=== PATIENT | female | born 1985 | race Caucasian/White ===

== ENCOUNTER 2018-07-08 16:05 | Emergency (ER) | payer OTHER, SELFPAY ==
[2018-07-08 16:12] VITALS: BP 111/68; PULSE 81; RESP 20; TEMP 36.7; O2SAT 98; BMI 29.5
--- NOTE | 2018-07-08 19:49 | ED_ITS ---
HPI - Female Genitourinary General Chief complaint: Urogenital-Female Stated complaint: SHARP UTERINE PAINS Time Seen by Provider: 07/08/18 19:39 Source: patient Mode of arrival: ambulatory Limitations: no limitations History of Present Illness HPI Narrative: Patient is a 32-year-old female who presents with uterine pain. She says she felt early this morning she has an IUD in place it has been there for about 4-5 months. No vaginal bleeding its mid suprapubic pain. She took some ibuprofen it did seem to help. She has been a little nauseated but no vomiting or fevers. She does have a history of frequent UTIs and is familiar with the symptoms she denies having any of those symptoms. She also denies any vaginal discharge. MD Complaint: pelvic pain Onset (ago): day(s) (1) Severity: mild Related Data Allergies Allergy/AdvReac Type Severity Reaction Status Date / Time ondansetron AdvReac Severe PT HAS Unverified 01/27/18 12:33 PROLONGED QT Review of Systems Review of Systems All systems reviewed & are unremarkable except as noted in HPI and below Constitutional Denies chills, Denies fever(s), Denies lethargy and Denies weakness Cardiovascular Denies chest pain, Denies irregular heart rhythm, Denies lightheadedness, Denies palpitations, Denies dyspnea, Denies dyspnea on exertion and Denies orthopnea Respiratory Denies cough, Denies dyspnea, Denies dyspnea on exertion and Denies wheezing Gastrointestinal Gastrointestinal: Reports nausea Genitourinary Reports system reviewed and no additional complaints, except as docu Musculoskeletal Denies back pain, Denies muscle weakness, Denies numbness and Denies tingling Neurologic Denies numbness, Denies tingling and Denies weakness Endocrine Denies palpitations Allergic/Immunologic Denies wheezing [facility] Social History Smoking Status: Never smoker Exam Initial Vital Signs Initial Vital Signs: Vital Signs Temperature 98.1 F 07/08/18 16:12 Pulse Rate 81 07/08/18 16:12 Respiratory Rate 07/08/18 16:12 Blood Pressure 111/68 07/08/18 16:12 Pulse Oximetry 98 07/08/18 16:12 GENERAL: Well-appearing, well-nourished and in no acute distress. HEENT: Head atraumatic,EOMI, pupils reactive, CARDIOVASCULAR: Regular rate and rhythm without murmurs, rubs or gallops. RESPIRATORY: Breath sounds equal bilaterally, no wheezes rales or rhonchi. ABDOMEN: Soft, mild midline suprapubic pain no lateral pain no guarding no rebound : No CVA tenderness EXTREMITIES: Normal range of motion, no clubbing or edema. Neurovascularly intact NEUROLOGICAL: Alert and oriented x4.Normal gait and speech. Cranial nerves II through XII grossly intact. SKIN: Warm, dry, no laceration, no petechiae, no rashes or lesions. Course Orders Ordered: ED Orders 07/08/18 19:49 XR abdomen min 2V Stat Vital Signs - 8 hr 07/08/18 16:12 07/08/18 20:30 Temperature 98.1 F 98.0 F Pulse Rate 81 71 Respiratory Rate 20 16 Blood Pressure 111/68 Blood Pressure [Left Arm] 110/66 Pulse Oximetry 98 100 MDM - Female Genitourinary Lab Data Attestation: I reviewed the patient's lab results. Point of Care Testing Test Results Negative Urine Dip Bedside Urine Glucose Negative Bedside Urine Bilirubin - Negative Bedside Urine Ketone - Negative Urine Specific [place] 1.015 Bedside Urine Occult Blood - Negative Bedside Urine pH 6.0 Bedside Urine Protein - Negative Bedside Urine Urobilinogen - Negative Bedside Urine Nitrite - Negative Bedside Urine Leukocytes - Negative Esterase Imaging Data Abdominal x-ray: Radiologist's impression: PROCEDURE: XR ABDOMEN MIN 2V INDICATIONS: IUD placement, pain lower abdomen, started today. TECHNIQUE: 2 views of the abdomen were acquired. COMPARISON: None. FINDINGS: Surgical changes and devices: Cholecystectomy clips are seen. An IUD is seen overlying the central pelvis. Bowel: No pneumoperitoneum. The bowel gas pattern is normal. There is a moderate amount of stool seen within the colon. Soft tissues: No masses; visualized solid organ contours appear normal in size. No suspicious abdominal calcifications. Bones: No suspicious bony abnormalities. IMPRESSION: The IUD is seen overlying the central pelvis. For further evaluation in this patient with this history, please consider a dedicated ultrasound or CT to evaluation, depending upon clinical suspicion. Dictated by: Octavio Garza M.D. on 07/08/2018 at 20:19 MDM Narrative Medical decision making narrative: IUD appears in place on x-ray. Discussed and offered her pelvic to patient. At this time she declines. No sign of UTI. Pain seems to be minimal at this time I recommended outpatient follow-up. Discharge Plan Departure Patient Disposition: Home Clinical Impression: Pelvic pain Discharge Date/Time: 07/08/18 21:19 Interventions: ED Discharge Assessment Last Done: 07/08/18 21:19 Instructions: DI for Pelvic Pain Activity Restrictions/Additional Instructions: *You have been diagnosed with pelvic pain *What to do: X-ray confirms placement of IUD however this may be causing some problems. *Continue to take medications as directed Motrin 600 mg every 6-8 hours if needed for pain *Follow up with your primary care provider in 2-3 days *Return to ER if you should have increasing persistent pain, vaginal bleeding or any new, worsening or concerning symptoms Referrals: Norma Castro MD [Primary Care Provider] -
[2018-07-08 20:30] VITALS: BP 110/66; PULSE 71; RESP 16; TEMP 36.7; O2SAT 100
== END 2018-07-08 21:19 | disposition home or self-care (01) ==
PROVIDERS: Emergency Provider Emergency Medicine; Family Provider Family Medicine; PCP Family Medicine
DX: R10.2 Pelvic and perineal pain (principal)
CPT/HCPCS: 74019; 81003; 81025; 99282; 99284

== ENCOUNTER → 2018-07-20 14:42 | Outpatient (CLI) | payer OTHER, SELFPAY ==
--- NOTE | 2018-07-20 | DI.US.S_ITS ---
PROCEDURE: US PELVIC COMPLETE INDICATIONS: PELVIC PAIN AND IUD PLACEMENT TECHNIQUE: Real-time scanning was performed of the pelvic organs, with image documentation. Additional endovaginal scanning was necessary due to incomplete visualization of the adnexal and endometrial structures by transabdominal scanning. COMPARISON: None. FINDINGS: Transabdominal scanning: Limited scanning through the kidneys shows no hydronephrosis. No pathologic free abdominal or pelvic fluid. Endovaginal scanning: Uterus: Uterus is normal in size at 11.8 x 3.8 x 5.3 cm. The endometrium measures 5 mm in combined thickness. An IUD is seen at its expected location. Ovaries: The right ovary measures 3.3 x 2.4 x 2.4 cm. The left ovary measures 5.8 x 2 x 4.1 cm. there is a prominent cyst with an associated daughter cyst involving the left ovary that measures 3.4 x 1.8 x 3 point. The ovaries otherwise have a normal sonographic appearance. No adnexal masses are seen. IMPRESSION: The IUD is seen in place. A 3.4 cm cystic lesion seen involving the left ovary, which is most likely related to a benign functional cyst in a patient of this age. At clinical discretion, a followup pelvic ultrasound is suggested in 6 weeks to assure resolution/ improvement. Dictated by: Octavio Garza M.D. on 07/20/2018 at 15:21 Approved by: Octavio Garza M.D. on 07/20/2018 at 15:23
== END ==
PROVIDERS: PCP Nurse Practitioner Family; Visit Provider Nurse Practitioner Family
DX: R10.2 Pelvic and perineal pain (principal); N83.202 Unspecified ovarian cyst, left side; Z30.431 Encounter for routine checking of intrauterine contraceptive device
CPT/HCPCS: 76830; 76856

== ENCOUNTER → 2018-09-07 15:52 | Outpatient (CLI) | payer OTHER, SELFPAY ==
--- NOTE | 2018-09-07 | DI.US.S_ITS ---
PROCEDURE: US PELVIC COMPLETE INDICATIONS: SIX WEEK FOLLOW UP OVARIAN CYST TECHNIQUE: Real-time scanning was performed of the pelvic organs, with image documentation. Additional endovaginal scanning was necessary due to incomplete visualization of the adnexal and endometrial structures by transabdominal scanning. COMPARISON: [facility], US, US PELVIC COMPLETE, 07/20/2018, 15:03. FINDINGS: Transabdominal scanning: Limited scanning through the kidneys shows no hydronephrosis. No pathologic free abdominal or pelvic fluid. Endovaginal scanning: Uterus: Uterus is normal in size at 8.0 x 4.5 x 5.2 cm. The endometrium measures 5.0 mm in combined thickness. Intrauterine device in expected position. Ovaries: Simple cyst involving the left ovary has increased in size now measuring 4.7 x 4.1 x 4.1 cm. Right ovary is normal. IMPRESSION: Increase in size of simple left ovarian cyst. Continued sonographic surveillance is recommended. Dictated by: Bernardo DE LA ROSA Interpreted: Kb Ferreira MD on 09/07/2018 at 16:50 Approved by: Kb Ferreira M.D. on 09/08/2018 at 16:51
== END ==
PROVIDERS: PCP Nurse Practitioner Family; Visit Provider Nurse Practitioner Family
DX: N83.292 Other ovarian cyst, left side (principal)
CPT/HCPCS: 76830; 76856

== ENCOUNTER 2018-11-26 06:36 | Day surgery (SDC) | payer OTHER, SELFPAY ==
[2018-11-23 10:11] VITALS: BMI 33.6
[2018-11-26] VITALS (9 sets, daily range): BP systolic 99–125; BP diastolic 63–82; PULSE 73–89; RESP 9–16; TEMP 36–36.4; O2SAT 93–100; BMI 33.6
--- NOTE | 2018-11-26 | PATH_ITS ---
[facility] [place] Accession Number: [id number] . 01 Material submitted: . PART A: RIGHT OVARIAN CYST PART B: PERINEAL BIOPSY . 02 Diagnosis: A. Right Ovarian Cyst: Benign serous cystadenoma (6.0 x 2.0 x 1.0 cm collapsed dimension). . B. Peritoneal Biopsy: Portions of fibroconnective tissue with a partial mesothelial lining, consistent with possible benign peritoneal cyst, in the appropriate clinical context. MRV/11/29/2018 . 02 Electronically signed: . Ene Maguire MD, Pathologist NPI- [id number] . 01 Gross description: . (A) Received in formalin, labeled RT ovarian cyst, is an opened sherman-edward rubbery ovarian cyst (6.0 x 2.0 x 1.0 cm) with a smooth flat lining with no excrescences identified. Recovery Unit Operator serial sections submitted in cassettes A1 and A2. (B) Received in formalin, labeled perineal biopsy, are multiple piece of sherman-white and sherman-brown membranous tissue (2.0 x 1.6 x 0.1 cm in aggregate. Serially sectioned and entirely submitted in cassette B1. ([id number]) /MRV . 02 Pathologist provided ICD-10: N83.201 . 02 CPT . 547867, 989614 Performed at: 01 [facility] [address], [place], [place] [id number] MD Manuel Malik MD Phone: [phone] Performed at: 02 [facility] [address] [place], [place] [id number] MD Brandi Arguelles MD Phone: [phone]
--- NOTE | 2018-11-26 07:20 | PM.PREOP ---
Pre-operative Note Interval Note History & Physical reviewed/Exam performed by Physician: Yes Changes to H&P: No
[2018-11-26] MEDS: LACTATED RINGERS 1,000 ML 42 ML IV ×2 (07:22→08:44)
[2018-11-26] MEDS: APREPITANT 40 MG CAPSULE PO (07:44)
--- NOTE | 2018-11-26 08:06 | SUR.OPER ---
Lithotomy on padded OR bed, head on pillow, arms secured on padded arm boards at <90 degrees abduction. Legs secured in padded yellow fins stirrups.
[2018-11-26] MEDS: BUPIVACAINE 0.5% W/ EPI (PF) VIAL 30 ML INJ (08:14)
--- NOTE | 2018-11-26 09:58 | SUR.PHASEII ---
Pt drowsy, mostly sleeping. Easily aroused. Denied any needs at this time. Call light within reach.
--- NOTE | 2018-11-26 10:00 | PM.OP.1 ---
Operative Date/Time/Diagnoses Date of procedure: 11/26/18 Time of procedure: 09:00 Pre-op diagnosis: Left lower quadrant pain and persistent ovarian cyst Post-op diagnosis: same Procedure & Clinicians Procedure: Laparoscopic right ovarian cystectomy, lysis of adhesions, biopsy of peritoneum Same procedure as scheduled: Yes Indications: Left lower quadrant pain with concern for possible endometriosis and persistent ovarian cyst Surgeon: Marisa Malave Click Yes if Unassisted: Yes Anesthesia Type: General Operative Notes Findings: Right ovarian simple cyst, filmy adhesions in the pelvis including between the descending colon and the posterior uterus and the left sidewall. Small clear cysts of the peritoneum that were biopsied to see if the atypical endometriosis. Normal liver edge, normal bowel surface. Normal uterus and left ovary. Normal fallopian tubes. IUD strings were not seen at the beginning of the case. Closure Type: primary Specimen(s): other (Right ovarian cyst wall, peritoneal biopsies) Estimated Blood Loss (mL): 10 Blood products transfused: none Procedure in detail: Patient was brought to the operating room where she underwent general anesthesia. She was placed in low yellowfin stirrups and prepped and draped in usual sterile fashion. No antibiotics were indicated. Pulsatile stockings were in place and functional. Warming was with blankets. A single-tooth tenaculum was placed on the anterior lip of the cervix. The IUD strings were not visible. A sponge stick was placed in the vagina. The area of the incisions were injected with half percent Marcaine with epinephrine. An incision was made in the umbilicus with a scalpel and the Verres needle placed in the abdomen. Confirmation of correct placement of the needle was performed by withdrawing on the syringe and then allowing fluid to fall freely through the needle. The abdomen was insufflated to 4 L of CO2. A 12 mm mm trocar was placed under direct visualization. 2 other 5 mm trochars were placed in the right and left lower quadrant under direct visualization after incising the skin. There did not appear to be any damage with placement of the trocars. The right ovarian cyst was grasped. With grasping the cyst the cyst ruptured. The rupture area was enlarged and the cyst wall grasped and dissected with blunt dissection out of the ovary. The cyst wall was sent to pathology. Adequate hemostasis was noted. Adhesions between the descending colon and the posterior uterus were lysed with scissors. Adhesion of the descending colon to the left sidewall were lysed. Some filmy adhesions on the anterior abdominal wall next to the bladder were lysed and removed. A biopsy of the peritoneum with some small clear blebs was taken to send to pathology to see if they were atypical endometriosis. Adequate hemostasis was noted. The abdomen was irrigated with saline. The CO2 was allowed to escape from the abdomen. The trochars were removed. The fascia of the a umbilical trocar site was repaired with 0 Vicryl suture. Skin was closed with 4-0 Monocryl. The patient went to recovery room in good condition. Complications: none Condition: stable Disposition: same day surgery Plan for aftercare: Home when awake and stable
[2018-11-26] MEDS: OXYCODONE/ACETAMINOPHEN 5/325 TABLET 1 TAB PO (11:00)
== END 2018-11-26 11:27 | disposition home or self-care (01) ==
PROVIDERS: PCP Nurse Practitioner Family; Visit Provider Specialist
PROC: (CPT 49321; principal; 2018-11-26 07:45)
DX: D27.0 Benign neoplasm of right ovary (principal); K66.0 Peritoneal adhesions (postprocedural) (postinfection)
CPT/HCPCS: 49321; 58662; J1100; J2250; J2704; J3010; J8501